=== PATIENT | male | born 1950 | race Caucasian/White ===

== ENCOUNTER 2024-09-08 16:46 | Emergency (ER) | payer OTHER, SELFPAY ==
[2024-09-08 17:11] VITALS: BP 177/90; PULSE 73; RESP 18; TEMP 36.4; O2SAT 96; BMI 29.9
--- NOTE | 2024-09-08 17:25 | EKG_ITS ---
[facility] Test Date: 2024-09-08 Pat Name: DODIE BUTTS Department: Room: - Gender: Male Integration Manager: : 1950 Requested By: Keri Cormier ([facility]) Nicolasa Order Number: [id number] Reading MD: Keri Cormier ([facility]) Nicolasa Measurements Intervals [place] Rate: 66 P: 206 SD: 87 QRS: 263 QRSD: 152 T: 56 QT: 434 QTc: 456 Interpretive Statements ELECTRONIC ATRIAL PACEMAKER MARKED RIGHT AXIS DEVIATION [QRS AXIS > 100] RIGHT BUNDLE BRANCH BLOCK [120+ ms QRS DURATION, UPRIGHT V1, 40+ ms S IN I/aVL/V4/V5/V6] Compared to ECG 04/02/2023 13:13:45 Right-axis deviation now present Sinus rhythm no longer present Indeterminate axis no longer present /store/S0/[id number]/[id number].pdf
--- NOTE | 2024-09-08 17:25 | XR_ITS ---
Examination: PA lateral chest 2 views Technique: Upright PA lateral chest 2 views Exam date and time: September 08, 2024 1730 hrs. Comparison April 02, 2023 Indications: High blood pressure today. Findings: Parenchymal scarring at the left apex noted on the prior study Normal heart size No pneumonia or pulmonary edema Impression: Impression: No interval pneumonia or pulmonary edema
--- NOTE | 2024-09-08 17:25 | XR_ITS ---
Examination: CT brain head without contrast. 2-D sagittal coronal reconstructions Date and time of exam: September 08, 2024 1800 hrs. Indications: Hypertension head pain and dizziness beginning one week ago CTDI: vol (mGy):55.9 DLP: (mGycm):1139 Technique: Multiple CT axial sections of the brain have been obtained, 5 mm slice thickness. Contrast has not been administered. 2-D sagittal, coronal reconstructions have been obtained Low dose protocols were performed. One or more of the following dose reduction techniques were used; automated exposure control, adjustment of the mA and/or KV according to patient size, use of iterative reconstruction technique. Findings: No significant ventricular enlargement. Intra-axial or extra-axial hemorrhage density is not seen. No mass effect or midline shift Basal cisterns are not remarkable. Fourth ventricle is midline. Cranial vault intact. Impression: Negative for acute hemorrhage, mass effect or midline shift
--- NOTE | 2024-09-08 17:26 | PD.EDRME ---
Rapid Medical Screening Exam RME Arrival date/time: 09/08/24 16:46 74y M here with complaints of headache, and elevated BP one week. I have greeted and performed a focused initial assessment of this patient. Initial appropriate labs ordered at this time. A comprehensive ED assessment and evaluation of the patient and analysis of all test and completion of medical decision making process will be conducted by additional ED provider. Chief Complaint: Headache Time Seen by Provider: 09/08/24 17:13 Vital signs: Vital Signs Temperature 97.6 F 09/08/24 17:11 Pulse Rate 73 09/08/24 17:11 Respiratory Rate 18 09/08/24 17:11 Blood Pressure 177/90 H 09/08/24 17:11 Pulse Oximetry (%) 96 09/08/24 17:11 Oxygen Delivery Method Room Air 09/08/24 17:11
[2024-09-08 18:08] LABS: Basophils % (Auto) 1 % (0-2.5); Eosinophils # (Auto) 0.2 Thou/mm3 (0.0-0.5); Eosinophils % (Auto) 2 % (0-10); Hemoglobin 16.5 g/dL (13.5-16.0); Immature Granulocytes % (Auto) 0 % (0-0); Immature Granulocytes Auto 0.01 Thou/mm3 (0.00-0.00); Lymphocytes # (Auto) 2.9 Thou/mm3 (1.0-4.8); Lymphocytes % (Auto) 38 % (10-50); Mean Corpuscular HGB Conc 33.7 g/dl (31.0-37.0); Mean Corpuscular Volume 92 fL (80-100); Monocytes # (Auto) 0.9 Thou/mm3 (0.0-0.8); Monocytes % (Auto) 12 % (0-12); Neutrophils # (Auto) 3.6 Thou/mm3 (1.8-7.7); Neutrophils % (Auto) 47 % (37-80); Nucleated Red Blood Cell % 0 /100 WBC (0); Platelet Count 199 Thou/mm3 (140-440); RDW Standard Deviation 43.1 fL (35.1-43.9); Red Blood Count 5.33 Miln/mm3 (4.50-5.90); White Blood Count 7.7 Thou/mm3 (3.8-10.6)
[2024-09-08 18:22] LABS: Prothrombin Time 11.1 Seconds (9.0-12.2)
[2024-09-08 18:28] LABS: B-Type Natriuretic Peptide < 20 pg/mL (0-100)
[2024-09-08 18:31] LABS: Alanine Aminotransferase 17 U/L (10-49); Albumin, Serum 4.5 gm/dL (3.4-4.8); Albumin/Globulin Ratio 1.5 (1.2-2.2); Alkaline Phosphatase 78 U/L (46-116); Anion Gap 7 (7-16); Aspartate Amino Transferase 23 U/L (0-34); BUN/Creatinine Ratio 16 Ratio (12-20); Bilirubin,Total 0.6 mg/dL (0.3-1.2); Blood Urea Nitrogen 16 mg/dL (9-23); Calcium 9.9 mg/dL (8.3-10.6); Calcium (Corrected) 9.9 mg/dL (8.5-10.1); Carbon Dioxide 26.7 mMol/L (20.0-31.0); Chloride 103 mMol/L (98-107); Estimated Creatinine Clearance 90.1 mL/min (>60); Globulin 3.1 gm/dL (2.3-3.5); Glucose 54 mg/dL (74-106); Osmolality,Calculated 273 (275-295); Sodium 137 mMol/L (136-145); Total Protein 7.6 gm/dL (5.7-8.2); Troponin I < 0.020 ng/mL (0.0-0.045); eGFR > 60 See Note
--- NOTE | 2024-09-08 19:29 | EDNOTE_ITS ---
<Statement entered by Roxana Bullock MD - 09/08/24 22:03> As co-signing physician, I was present and available for consult prn. I concur with the plan and care as documented by the midlevel provider. ED General RME/HPI General Chief complaint: Headache Stated complaint: PCP SENT FOR HIGH BP; HEADACHE DIZZY Time Seen by Provider: 09/08/24 17:13 Arrival date/time: 09/08/24 16:46 CC: Headache and hypertension HPI patient presents the ER after being seen [place]ist [place] who stated he had upon multiple attempts, elevated blood pressure and need to be seen in the emergency room immediately. The patient denies blurred vision seeing spots bloody urination tea colored urine chest pain shortness of breath or difficulty breathing he is admits he is a type I diabetic who takes his medications religiously. Patient states he currently has minimal headache. RME / HPI RME / HPI narrative: 09/08/24 16:46 74y M here with complaints of headache, and elevated BP one week. I have greeted and performed a focused initial assessment of this patient. Initial appropriate labs ordered at this time. A comprehensive ED assessment and evaluation of the patient and analysis of all test and completion of medical decision making process will be conducted by additional ED provider. Related Data Home Medications ?Medication ?Instructions ?Recorded ?Confirmed aspirin 81 mg tablet,delayed 81 mg PO QDAY 04/04/23 04/04/23 release benzonatate 100 mg capsule See Rx Instructions .Route .COMPLEX 04/04/23 04/04/23 blood sugar diagnostic (Accu-Chek 04/04/23 04/04/23 Guide test strips) blood-glucose transmitter (Dexcom 04/04/23 04/04/23 G6 Transmitter device) capsaicin 0.025 % topical cream See Rx Instructions .Route .COMPLEX 04/04/23 04/04/23 fluticasone propionate 50 1 spray intranasal BID 04/04/23 04/04/23 mcg/actuation nasal spray,suspension gabapentin 600 mg tablet 600 mg PO TID 04/04/23 04/04/23 iohexol 300 mg iodine/mL injection See Rx Instructions .Route .COMPLEX 04/04/23 04/04/23 syringe lidocaine 5 % topical ointment See Rx Instructions .Route .COMPLEX 04/04/23 04/04/23 lidocaine 5 % topical patch See Rx Instructions .Route .COMPLEX 04/04/23 04/04/23 meloxicam 15 mg disintegrating 15 mg PO QDAY 04/04/23 04/04/23 tablet omeprazole 40 mg capsule,delayed 40 mg PO QDAY 04/04/23 04/04/23 release sildenafil 100 mg tablet 100 mg PO QDAY 04/04/23 04/04/23 simvastatin 40 mg tablet 40 mg PO QDAY 04/04/23 04/04/23 tamsulosin 0.4 mg capsule 0.4 mg PO QDAY 04/04/23 04/04/23 tiotropium bromide 2.5 2 puff inhalation QDAY 04/04/23 04/04/23 mcg/actuation mist for inhalation trazodone 100 mg tablet 100 mg PO HS 04/04/23 04/04/23 Previous Rx's ?Medication ?Instructions ?Recorded pen needle, diabetic 32 gauge x #100 ea 04/04/23 (AboutTime Pen Needle) lisinopril 20 mg tablet 20 mg PO QDAY #20 tabs 09/08/24 Allergies Allergy/AdvReac Type Severity Reaction Status Date / Time No Known Allergies Allergy Verified 09/08/24 16:48 Review of Systems Review of Systems Narrative Review of Systems: GEN: No fever, no chills, no weight loss EYES: No discharge, no visual changes, no pain HEENT: No ear pain, no congestion, no sore throat PULM: No shortness of breath, no cough, no congestion CV: No chest pain, no dyspnea on exertion, no palpitations GI: No nausea, no vomiting, no diarrhea, no pain, no constipation : No frequency, no urgency, no dysuria MUSC/SKEL: No joint pain, no back pain SKIN: No rash PSYCH: No hallucinations, no depression HEME/LYMPH: No easy bleeding or bruising tendencies NEURO: No weakness, + headache Past Medical History Past Medical History NEUROLOGIC: Positive Neurological Disorders and Transient Ischemic Attacks (TIA) CARDIAC: Positive Angina and Hypercholesterolemia; Negative Congestive Heart Failure RESPIRATORY: Positive Chronic Obstructive Pulmonary Disease (COPD), Pneumonia and Sleep Apnea GENITOURINARY: Positive Benign Prostatic Hyperplasia; Negative Renal Disease ENDOCRINE: Positive Diabetes Mellitus Type 1; Negative Diabetes Mellitus Type 2 HEMATOLOGIC: Negative Blood Disorders Social History SMOKING STATUS: Never smoker ED Exam Narrative Physical exam: [General: Not in any acute distress Head normocephalic HEENT: Within acceptable limits Neck is supple nontender Chest equal chest rise nontender to palpation Respiratory: Clear to auscultation no wheezes crackles or rubs CV: Rate rhythm is regular no murmurs rubs or clicks Abdomen is distended secondary to body habitus soft nontender no masses positive bowel sounds all 4 quadrants Back: No CVA tenderness no spinous process tenderness from cervical spine thoracic and lumbar spine Skin: Intact no petechiae rash induration ulceration or crepitus Extremities: Moving all extremity against resistance cap refill less than 2 seconds neurosensory intact, no lower extremity edema Neuro: Awake alert oriented x3 [place]ow coma 15 no focal deficits] Course Quality Measures none Orders Category Date Time Status EKG (ED ONLY) *Do not use* NOW Care 09/08/24 17:[address] head/brain wo con Stat Exams 09/08/24 17:25 Completed EKG (ED Only) Stat Exams 09/08/24 17:25 Draft XR chest 2V Stat Exams 09/08/24 17:25 Completed B-Type Natriuretic Peptide Stat Lab 09/08/24 17:55 Completed CBC Stat Lab 09/08/24 17:55 Completed Comprehensive Metabolic Panel Stat Lab 09/08/24 17:55 Completed Prothrombin Time with INR Stat Lab 09/08/24 17:55 Completed Troponin I Stat Lab 09/08/24 17:55 Completed Vital Signs Vital signs: Vital Signs Temperature 97.6 F 09/08/24 17:11 Pulse Rate 73 09/08/24 17:11 Respiratory Rate 18 09/08/24 17:11 Blood Pressure 177/90 H 09/08/24 17:11 Pulse Oximetry (%) 96 09/08/24 17:11 Oxygen Delivery Method Room Air 09/08/24 17:11 [facility] Patient data External records reviewed:: [facility] previous records Clinical information provided by:: patient Social determinants that could affect healthcare access:: none Patient has the following chronic illnesses:: Diabetes How is presenting disease/condition affected by chronic disease/condition?: u neffected by Evaluation data The following diagnostics were reviewed and interpreted by me:: lab results Lab and/or radiology exams considered but not ordered:: EKG performed at 1741 shows a ventricular rate of 6 6 VT interval 87 QRS of 152 QTc of 447 chronically paced rhythm. CBC shows no acute leukocytosis anemia thrombocytopenia CMP shows no acute electrolyte imbalances renal impairment transaminitis or T. bili elevation Urine is negative for protein, or urinary tract infection CT of the head is negative for any acute finding quires emergent immediate intervention. Interpretation Summary: Hypertension no signs of endorgan damage Medications Medications considered but not ordered:: None Medication administrations:: None Consultations Consultation(s) initiated? (list below): No Diagnosis Differential Diagnosis ED Complaint MDM: Hypertension hypertensive urgency hypertensive emergency Most likely diagnosis given after review of the tests above:: Hypertension Admission Indicated Admission indicated?: not indicated Explain why admission is indicated or not indicated:: Stable for outpatient follow-up Admission Request Was there a request for admission?: No Disposition Plan Disposition Plan: Discharge Discharge Attestation Discharge Attestation: The patient and all family members were given an opportunity to ask questions and understood the discharge instructions. Discharge instructions specifically effects, indications for sooner follow up or return to the emergency department, and the expected course of current diagnosis. Patient condition: Stable Medical Decision Making Differential Diagnosis Differential Diagnosis: Hypertension hypertensive urgency hypertensive emergency Lab Data 09/08/24 17:55 09/08/24 17:55 Labs: Lab Results 09/08/24 Range/Units 17:55 WBC 7.7 (3.8-10.6) Thou/mm3 RBC 5.33 (4.50-5.90) Miln/mm3 Hgb 16.5 H (13.5-16.0) g/dL Hct 49.0 (41.0-53.0) % MCV 92 (80-100) fL MCH 31.0 (25.0-35.0) pg MCHC 33.7 (31.0-37.0) g/dl RDW Std Deviation 43.1 (35.1-43.9) fL Plt Count 199 (140-440) Thou/mm3 Neut % (Auto) 47 (37-80) % Lymph % (Auto) 38 (10-50) % [place] % (Auto) 12 (0-12) % Eos % (Auto) 2 (0-10) % Baso % (Auto) 1 (0-2.5) % Neut # (Auto) 3.6 (1.8-7.7) Thou/mm3 Lymph # (Auto) 2.9 (1.0-4.8) Thou/mm3 [place] # (Auto) 0.9 H (0.0-0.8) Thou/mm3 Eos # (Auto) 0.2 (0.0-0.5) Thou/mm3 Baso # (Auto) 0.0 (0.0-0.2) Thou/mm3 Immature Gran # (Auto) 0.01 H (0.00-0.00) Thou/mm3 Absolute Nucleated RBC 0.00 (0.00-0.00) Thou/mm3 Immature Gran % 0 (0-0) % Nucleated RBC % 0 (0) /100 WBC PT 11.1 (9.0-12.2) Seconds INR 1.0 (0.9-1.3) Sodium 137 (136-145) mMol/L Potassium 4.0 (3.4-5.1) mMol/L Chloride 103 (98-107) mMol/L Carbon Dioxide 26.7 (20.0-31.0) mMol/L Anion Gap 7 (7-16) BUN 16 (9-23) mg/dL Creatinine 1.0 (0.6-1.3) mg/dL Estim Creat Clear Calc 90.1 (>60) mL/min eGFR > 60 (60 - ) See Note BUN/Creatinine Ratio 16 (12-20) Ratio Glucose 54 L (74-106) mg/dL Calculated Osmolality 273 L (275-295) Calcium 9.9 (8.3-10.6) mg/dL Corrected Calcium 9.9 (8.5-10.1) mg/dL Total Bilirubin 0.6 (0.3-1.2) mg/dL AST 23 (0-34) U/L ALT 17 (10-49) U/L Alkaline Phosphatase 78 (46-116) U/L Troponin I < 0.020 (0.0-0.045) ng/mL B-Natriuretic Peptide < 20 (0-100) pg/mL Total Protein 7.6 (5.7-8.2) gm/dL Albumin 4.5 (3.4-4.8) gm/dL Globulin 3.1 (2.3-3.5) gm/dL Albumin/Globulin Ratio 1.5 (1.2-2.2) Discharge Plan Plan Patient Disposition: HOME (Self Care) Patient condition on transfer: Stable Prescriptions/Referrals Prescriptions/Med Rec: New lisinopril 20 mg tablet 20 mg PO QDAY Qty: 20 0RF No Action gabapentin 600 mg Tablet 600 mg PO TID aspirin 81 mg Tablet,Delayed Release (Dr/Ec) 81 mg PO QDAY benzonatate 100 mg Capsule See Rx Instructions .ROUTE .COMPLEX Rx Instructions: TAKE ONE CAPSULE BY EVERY MORNING AND 2 CAPSULES BY MOUTH EVERY EVENING FOR COUGH. *FOR 10 DAYS ONLY* DO NOT BREAK OR CRUSH lidocaine 5 % Adhesive Patch,Medicated See Rx Instructions .ROUTE .COMPLEX Rx Instructions: APPLY ONE PATCH TO SKIN DAILY. LEAVE ON FOR UP TO 12 HOURS THEN REMOVE FOR 12 HOURS EVERY MORNING capsaicin 0.025 % Cream See Rx Instructions .ROUTE .COMPLEX Rx Instructions: aPPLY THIN FILM ON SKIN AT BEDTIME IF NEEDED FOR NEUROPATHY *DO NOT USE ON FACE. WASH HANDS AFTER USE* fluticasone propionate 50 mcg/actuation [place],Suspension 1 spray INTRANASAL BID Rx Instructions: administer into each nostril (DME) Dexcom G6 Transmitter Device lidocaine 5 % Ointment See Rx Instructions .ROUTE .COMPLEX Rx Instructions: APPLY THINF FILM ON SKIN AT BEDTIME IF NEEDED FOR NEUROPATHY. APPLY TO FEET. omeprazole 40 mg Capsule,Delayed Release(Dr/Ec) 40 mg PO QDAY sildenafil 100 mg Tablet 100 mg PO QDAY simvastatin 40 mg Tablet 40 mg PO QDAY meloxicam 15 mg Tablet,Disintegrating 15 mg PO QDAY tamsulosin 0.4 mg Capsule 0.4 mg PO QDAY (DME) Accu-Chek Guide test strips Strip trazodone 100 mg Tablet 100 mg PO HS iohexol 300 mg iodine/mL Syringe See Rx Instructions .ROUTE .COMPLEX Rx Instructions: DRINK 15ML BY MOUTH DIRECTED 2 HOURS BEFORE EXAM: DRINK 15ML MIXED IN 2 CUPS OF WATER VT JUICE THEM 1 HOUR BEFORE EXAM: DRINK 15ML IN 2 CUPS OF WATER OR JUICE tiotropium bromide 2.5 mcg/actuation Mist 2 puff INHALATION QDAY (DME) pen needle, diabetic [AboutTime Pen Needle] 32 gauge x 5/32 needle See Rx Instructions .Route Qty: 100 0RF Rx Instructions: As directed Referrals: No Primary/Family,Physician [Primary Care Provider] - In 1 week Problem List Clinical Impression: Hypertension Patient/Caregiver Discharge Instructions Education Materials: ED High Blood Pressure ... Print Language: American Stand Alone Forms: Katie Award Info., Work/School Release, Patient Portal Info Letter PA/[employer] Supervising Physician PA/[employer] Supervising Physician: Mitch Mendoza ENP
== END 2024-09-08 19:42 | disposition home or self-care (01) ==
PROVIDERS: Nurse Practitioner Primary Care; Emergency Provider Emergency Medicine
DX: I10 Essential (primary) hypertension (principal); R51.9 Headache, unspecified; R42 Dizziness and giddiness; I45.10 Unspecified right bundle-branch block; E78.00 Pure hypercholesterolemia, unspecified
CPT/HCPCS: 36415; 70450; 71046; 80053; 83880; 84484; 85025; 85610; 93005; 99284